=== PATIENT | female | born 1985 | race Caucasian/White ===

== ENCOUNTER 2018-09-28 05:31 | Outpatient (CLI) | payer BC ==
[~2018-09-28] VITALS: Ht 157.5 cm; Wt 99.8 kg
[2018-09-28] MEDS ORDERED: APIX5TAB PO (13:53)
[2018-09-28] MEDS ORDERED: DULO60CA58 PO (13:53)
[2018-09-28] MEDS ORDERED: BACL10TA PO (13:53)
[2018-09-28] MEDS ORDERED: PREG75CA PO (13:53)
[2018-09-28] MEDS ORDERED: METF-397 PO (14:25)
[2018-09-28] MEDS ORDERED: MULT-141 PO (14:25)
[2018-09-28] MEDS ORDERED: CHOL200025 PO (14:25)
[2018-09-28] MEDS ORDERED: MIRA50TA PO (14:25)
[2018-09-28] MEDS ORDERED: LISI10TA2 PO (14:25)
[2018-09-28] MEDS ORDERED: MELA1TAB20 PO (14:25)
[2018-09-28] MEDS ORDERED: MAGN500C15 PO (14:25)
[2018-09-28] MEDS ORDERED: PROP20TA5 PO (14:25)
[2018-09-28] MEDS ORDERED: DICY10CA12 PO (14:25)
[2018-09-28] MEDS ORDERED: GINK60TA7 PO (14:25)
[2018-09-28] MEDS ORDERED: LURA40TA3 PO (14:25)
[2018-09-28] MEDS ORDERED: OXYB10TA PO (14:25)
[2018-09-28] MEDS ORDERED: ATOR20TA66 PO (14:25)
[2018-09-28] MEDS ORDERED: FERR-84 PO (14:25)
[2018-09-28] MEDS ORDERED: OMG1KC PO (14:25)
== END 2018-09-28 14:26 | disposition home or self-care (01) ==
LOC: PREOP 05:31
PROVIDERS: ATTEND Urology
DX: Z01.818 Encounter for other preprocedural examination (principal)

== ENCOUNTER 2018-10-03 07:08 | Day surgery (SDC) | payer BC ==
[~2018-10-03] VITALS: Ht 157.5 cm; Wt 99.8 kg
[~2018-10-03 07:08] MED LIST: APIX5TAB PO; ATOR20TA66 PO; BACL10TA PO; CHOL200025 PO; DICY10CA12 PO; DULO60CA58 PO; FERR-84 PO; GINK60TA7 PO; LISI10TA2 PO; LURA40TA3 PO; MAGN500C15 PO; MELA1TAB20 PO; METF-397 PO; MIRA50TA PO; MULT-141 PO; OMG1KC PO; OXYB10TA PO; PREG75CA PO; PROP20TA5 PO
[2018-10-03 07:25] VITALS: BP 110/81
[2018-10-03] MEDS: LACTATED RINGERS 1,000 ML IV PRN ×2 (07:25→09:06)
[2018-10-03] MEDS ORDERED: cefTRIAXone 1,000 MG IV (ROCEPHIN) VIAL ONE (07:51)
[2018-10-03] MEDS ORDERED: cefTRIAXone FOR IV USE 1,000 MG in WATER (STERILE) FOR INJECTION 10 ML IV ONE (08:00)
[2018-10-03] MEDS ORDERED: fentaNYL INJECTION 100 MCG/2 ML AMP ONE (08:28)
[2018-10-03] MEDS ORDERED: MIDAZOLAM 2 MG/2 ML (VERSED) VIAL ONE (08:28)
--- NOTE | 2018-10-03 08:34 | Progress Note-Pre Operative ---
Pre-Operative Progress Note H&P Reviewed The H&P was reviewed, patient examined and no changes noted. Date Seen by Provider: Oct 03, 2018 Time Seen by Provider: 08:33 Date H&P Reviewed: Oct 03, 2018 Time H&P Reviewed: 08:33 Pre-Operative Diagnosis: INCONTINENCE, ISD, AND OAB CHAPIS SEVILLA MD Oct 03, 2018 08:34
[2018-10-03] MEDS ORDERED: ONDANSETRON 4 MG/2 ML (SDV) Z0FRAN ONE (08:36)
[2018-10-03] MEDS ORDERED: proPOfol 200 MG/20 ML (DIPRIVAN) VIAL IV ONE (08:36)
[2018-10-03] MEDS ORDERED: DEXAMETHASONE 10 MG/ML (DECADRON) 1 ML VIAL ONE (08:36)
[2018-10-03] MEDS ORDERED: LIDOCAINE PF 2% 5 ML (XYLOCAINE) VIAL ONE (08:36)
--- NOTE | 2018-10-03 08:36 | Progress Note-Post Operative ---
Post-Operative Progess Note Surgeon (s)/Batch Plant Operator (s) Surgeon CHAPIS SEVILLA MD Batch Plant Operator: NONE Pre-Operative Diagnosis INCONTINENCE, ISD, AND OAB Post-Operative Diagnosis SAME Procedure & Operative Findings Date of Procedure 10/03/18 Procedure Performed/Findings MACROPLASTIQUE IMPLANT Anesthesia Type GENERAL Estimated Blood Loss Estimated blood loss (mL): NONE Specimens/Packing Specimens Removed NONE Packing: NONE CHAPIS SEVILLA MD Oct 03, 2018 08:36
--- NOTE | 2018-10-03 08:38 | Discharge Inst-Urology ---
Discharge Inst-Urology Discharge Medications New, Converted, or Re-newed RX: RX on Chart Patient Instructions/Follow Up Plan Please make appointment to been seen in office in 4 weeks. Rest for 2 weeks In 48 hours, if no bleedings, may resume Eliquis Increase oral fluids for 48 hours and then as needed. Diet as tolerated. If questions or concerns contact your physician Or seek help at emergency department. CHAPIS SEVILLA MD Oct 03, 2018 08:38
[2018-10-03] MEDS ORDERED: ONDANSETRON 4 MG/2 ML (SDV) Z0FRAN IVP PRN (08:45)
[2018-10-03] MEDS ORDERED: fentaNYL INJECTION 100 MCG/2 ML AMP IVP ONE ×2 (08:45)
[2018-10-03] MEDS ORDERED: MEPERIDINE (DEMEROL) INJ 50 MG/ML IVP ONE (08:45)
[2018-10-03] MEDS ORDERED: SEVOFLURANE (ULTANE) 15 ML INHAL SOLN ONE ×3 (09:03→09:05)
[2018-10-03] MEDS ORDERED: PHEN-640 PO (09:14)
[2018-10-03] MEDS ORDERED: NITR-65 PO (09:14)
[2018-10-03 10:10] VITALS: BP 90/60
[2018-10-03] MEDS ORDERED: PHENAZOPYRIDINE 100 MG (PYRIDIUM) TABLET ONE (10:14)
[2018-10-03] MEDS ORDERED: PHENAZOPYRIDINE 100 MG (PYRIDIUM) TABLET PO ONE (10:30)
[2018-10-03 10:40] VITALS: BP 97/58
--- NOTE | 2018-10-03 10:41 | Anesthesia-General Post-Op ---
General Patient Condition Mental Status/LOC: Same as Preop Cardiovascular: Satisfactory Nausea/Vomiting: Absent Respiratory: Satisfactory Pain: Controlled Complications: Absent Post Op Complications Complications None Follow Up Care/Instructions Patient Instructions None needed. Anesthesia/Patient Condition Patient Condition Patient is doing well, no complaints, stable vital signs, no apparent adverse anesthesia problems. No complications reported per nursing. BRUCE RIOS CRNA Oct 03, 2018 10:41
[2018-10-03 11:10] VITALS: BP 98/74
[2018-10-03 11:20] VITALS: BP 98/74
--- NOTE | 2018-10-03 13:23 | OPERATIVE REPORT ---
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 POSTOPERATIVE DIAGNOSES: Mixed urinary incontinence with intrinsic sphincter deficiency and overactive bladder. OPERATION PERFORMED: Cystoscopy with Macroplastique implant. SURGEON: Andrew Sevilla MD ANESTHESIA: General. COMPLICATIONS: None. PROCEDURE: Under satisfactory general anesthesia, the patient in lithotomy position, genitalia were prepped and draped in the usual sterile fashion. Cystoscopy was performed and was essentially normal. Using the foroblique lens, I injected a full syringe of Macroplastique in the 6 o'clock position at the level of the mid urethra using the described technique and then half a syringe at each of the 10 and 2 o'clock position. There was excellent coaptation of the urethra at the mid urethral level. I left the bladder full, removed the cystoscope and performed a manual Valsalva maneuver that was negative. I reinserted the cystoscope and emptied the bladder. There was very minimal bleeding. The patient tolerated the procedure and anesthesia well and was sent to recovery room in stable condition. Job ID: [id number] DocumentID: [id number] Dictated Date: 10/03/2018 09:13:58 Studio Camera Operator Date: 10/03/2018 13:22:06 Dictated By: ANDREW SEVILLA MD
== END 2018-10-03 11:40 | disposition home or self-care (01) ==
LOC: SDC 07:08
PROVIDERS: ATTEND Urology
DX: N36.42 Intrinsic sphincter deficiency (ISD) (principal); N39.46 Mixed incontinence; N32.81 Overactive bladder; I10 Essential (primary) hypertension; E05.00 Thyrotoxicosis with diffuse goiter without thyrotoxic crisis or storm; K21.9 Gastro-esophageal reflux disease without esophagitis; G57.93 Unspecified mononeuropathy of bilateral lower limbs; M06.9 Rheumatoid arthritis, unspecified; Z86.711 Personal history of pulmonary embolism; Z79.899 Other long term (current) drug therapy
CPT/HCPCS: 84703; 87081

== ENCOUNTER → 2018-11-20 | Outpatient (CLI) | payer BC ==
[~2018-11-20] VITALS: Ht 157.5 cm; Wt 99.8 kg
[~2018-11-20] MED LIST changes: +METH5TAB5 PO; +NITR-65 PO; +PHEN-640 PO
== END | disposition home or self-care (01) ==
LOC: PREOP 05:37
PROVIDERS: ATTEND Urology
DX: Z01.818 Encounter for other preprocedural examination (principal)

== ENCOUNTER 2018-11-21 06:01 | Day surgery (SDC) | payer BC ==
[~2018-11-21] VITALS: Ht 157.5 cm; Wt 99.9 kg
[2018-11-21] VITALS (11 sets, daily range): BP systolic 88–115; BP diastolic 60–78
[2018-11-21] MEDS ORDERED: cefTRIAXone FOR IV USE 1,000 MG in WATER (STERILE) FOR INJECTION 10 ML IV ONE (06:15)
[2018-11-21] MEDS: LACTATED RINGERS 1,000 ML IV PRN ×2 (06:30→09:12)
[2018-11-21] MEDS ORDERED: CATHETER FLUSH 10 ML SYR IV PRN (07:00)
--- NOTE | 2018-11-21 07:08 | Progress Note-Pre Operative ---
Pre-Operative Progress Note H&P Reviewed The H&P was reviewed, patient examined and no changes noted. Date Seen by Provider: November 21, 2018 Time Seen by Provider: 07:07 Date H&P Reviewed: November 21, 2018 Time H&P Reviewed: 07:07 Pre-Operative Diagnosis: MIXED INCONTINENCE, OAB, AND ISD CHAPIS SEVILLA MD November 21, 2018 07:08
[2018-11-21] MEDS ORDERED: proPOfol 200 MG/20 ML (DIPRIVAN) VIAL IV ONE (07:10)
[2018-11-21] MEDS ORDERED: LIDOCAINE PF 2% 5 ML (XYLOCAINE) VIAL ONE (07:10)
[2018-11-21] MEDS ORDERED: fentaNYL INJECTION 100 MCG/2 ML AMP ONE (07:10)
[2018-11-21] MEDS ORDERED: MIDAZOLAM 2 MG/2 ML (VERSED) VIAL ONE (07:10)
[2018-11-21] MEDS ORDERED: ONDANSETRON 4 MG/2 ML (SDV) Z0FRAN ONE (07:10)
--- NOTE | 2018-11-21 07:10 | Progress Note-Post Operative ---
Post-Operative Progess Note Surgeon (s)/Leak Inspector (s) Surgeon CHAPIS SEVILLA MD Leak Inspector: NONE Pre-Operative Diagnosis MIXED INCONTINENCE, OAB, AND ISD Post-Operative Diagnosis SAME Procedure & Operative Findings Date of Procedure 11/21/18 Procedure Performed/Findings MACROPLASTIQUE IMPLANT Anesthesia Type GENERAL Estimated Blood Loss Estimated blood loss (mL): NONE Specimens/Packing Specimens Removed NONE Packing: NONE CHAPIS SEVILLA MD November 21, 2018 07:10
[2018-11-21] MEDS ORDERED: SEVOFLURANE (ULTANE) 15 ML INHAL SOLN ONE ×2 (07:11→07:39)
--- NOTE | 2018-11-21 07:12 | Discharge Inst-Urology ---
Discharge Inst-Urology Discharge Medications New, Converted, or Re-newed RX: RX on Chart Patient Instructions/Follow Up Plan Please make appointment to been seen in office in 4 weeks. In 48 hours, if no bleeding, may resume Plavix Increase oral fluids for 48 hours and then as needed. Diet and Activity as tolerated. If questions or concerns contact your physician Or seek help at emergency department. CHAPIS SEVILLA MD November 21, 2018 07:12
[2018-11-21] MEDS ORDERED: MEPERIDINE (DEMEROL) INJ 50 MG/ML IVP ONE (08:00)
[2018-11-21] MEDS ORDERED: ONDANSETRON 4 MG/2 ML (SDV) Z0FRAN IVP PRN (08:00)
[2018-11-21] MEDS ORDERED: PROMETHAZINE INJ 25 MG/ML (PHENERGAN) AMP IVP ONE (08:00)
[2018-11-21] MEDS ORDERED: fentaNYL INJECTION 100 MCG/2 ML AMP IVP ONE (08:00)
[2018-11-21] MEDS ORDERED: NITR-65 PO (08:22)
[2018-11-21] MEDS ORDERED: PHEN-640 PO (08:22)
[2018-11-21] MEDS ORDERED: PHENAZOPYRIDINE 100 MG (PYRIDIUM) TABLET ONE (09:00)
[2018-11-21] MEDS ORDERED: PHENAZOPYRIDINE 100 MG (PYRIDIUM) TABLET PO ONE (09:15)
--- NOTE | 2018-11-21 09:26 | Anesthesia-General Post-Op ---
General Patient Condition Mental Status/LOC: Same as Preop Cardiovascular: Satisfactory Nausea/Vomiting: Absent Respiratory: Satisfactory Pain: Controlled Complications: Absent Post Op Complications Complications None Follow Up Care/Instructions Patient Instructions None needed. Anesthesia/Patient Condition Patient Condition Patient is doing well, no complaints, stable vital signs, no apparent adverse anesthesia problems. No complications reported per nursing. D/C home per [facility] Criteria: No BECCA ROMERO CRNA November 21, 2018 09:26
--- NOTE | 2018-11-21 09:33 | OPERATIVE REPORT ---
DATE OF SERVICE: 11/21/2018 PREOPERATIVE DIAGNOSES: Mixed urinary incontinence with overactive bladder and intrinsic sphincter deficiency. POSTOPERATIVE DIAGNOSES: Mixed urinary incontinence with overactive bladder and intrinsic sphincter deficiency. OPERATION PERFORMED: Macroplastique implant. SURGEON: Andrew Sevilla MD ANESTHESIA: General. COMPLICATIONS: None. DESCRIPTION OF PROCEDURE: Under satisfactory general anesthesia, the patient in lithotomy position, genitalia were prepped and draped in the usual sterile fashion. Cystoscope was introduced in the bladder, which was emptied. A full syringe of Macroplastique was injected at the 6 o'clock position in the mid urethra using the described technique. There was excellent elevation of the tissue. Similarly, half syringe was injected on each 10 & 2 o'clock position. There was excellent coaptation of the urethra. No bleeding. I removed the cystoscope, performed a manual Valsalva maneuver that was negative. Reinserted the scope to empty the bladder. ESTIMATED BLOOD LOSS: None. The patient tolerated the procedure and anesthesia well and was sent to recovery room in stable condition. Job ID: [id number] DocumentID: [id number] Dictated Date: 11/21/2018 07:47:47 Legal Word Processor Date: 11/21/2018 09:32:50 Dictated By: ANDREW SEVILLA MD [facility]
== END 2018-11-21 10:05 | disposition home or self-care (01) ==
LOC: SDC 06:01
PROVIDERS: ATTEND Urology
DX: N36.42 Intrinsic sphincter deficiency (ISD) (principal); N39.46 Mixed incontinence; N32.81 Overactive bladder; I10 Essential (primary) hypertension; K21.9 Gastro-esophageal reflux disease without esophagitis; E05.00 Thyrotoxicosis with diffuse goiter without thyrotoxic crisis or storm; E28.2 Polycystic ovarian syndrome; E66.01 Morbid (severe) obesity due to excess calories; Z68.41 Body mass index [BMI] 40.0-44.9, adult; Z86.711 Personal history of pulmonary embolism; Z79.01 Long term (current) use of anticoagulants; Z79.84 Long term (current) use of oral hypoglycemic drugs; Z79.899 Other long term (current) drug therapy
CPT/HCPCS: 84703; 87081

== ENCOUNTER 2019-06-08 16:31 | Emergency (ER) | payer BC ==
[~2019-06-08] VITALS: Ht 157 cm; Wt 110.8 kg
[~2019-06-08 16:31] MED LIST changes: -DULO60CA58 PO; +DULO60CA59 PO; -OXYB10TA PO; +OXYB10TA2 PO
[2019-06-08] MEDS ORDERED: APIX5TAB PO (16:55)
[2019-06-08] MEDS ORDERED: SELE200T11 PO (16:55)
[2019-06-08] MEDS ORDERED: LEVO50TA6 PO (16:55)
--- NOTE | 2019-06-08 17:37 | ED Abdominal Pain ---
General Chief Complaint: Abdominal/GI Problems Stated Complaint: ABD PAIN Nursing Triage Note: PATIENT HAS BEEN HAVING LUQ ABD PAIN UNDER HER RIBS X1 MONTH. AT FIRST SHE THOGUHT IT WAS MUSCULAR, HURTS WITH MOVEMENT, COUGHING, LAUGHING. IT HAS PROGRESSED IT NOW HURTS EVEN WHEN SHE IS NOT MOVING. Sepsis Screen: No Definite Risk Source of Information: Patient Exam Limitations: No Limitations History of Present Illness Date Seen by Provider: Jun 08, 2019 Time Seen by Provider: 17:33 Initial Comments This 34-year-old white female presents with complaint of left upper quadrant pain for the past month that has been made worse with movement or coughing. Patient denies associated fever, chills, dysuria, frequency, nausea, vomiting, or diarrhea. Past medical history includes previous pancreatitis. She is status post cholecystectomy and appendectomy. The patient's had a previous pulmonary embolus and is on AHLQUIST 5 mg twice a day. Patient's pain is moderate in severity and sharp in nature. It is located in the left upper quadrant. It does not radiate. Allergies and Home Medications Allergies Coded Allergies: lamotrigine (Verified Allergy, Mild, RASH, 11/20/18) niacin (Verified Allergy, Mild, RASH, 11/20/18) sulfamethoxazole (Verified Allergy, Mild, HIVES, 11/20/18) trimethoprim (Verified Allergy, Mild, HIVES, 11/20/18) morphine (Verified Adverse Reaction, Unknown, DOESNT' WORK FOR PAIN CONTROL, 09/28/18) Home Medications Apixaban 5 Mg Tablet, 5 MG PO BID, (Reported) Atorvastatin Calcium 20 Mg Tablet, 20 MG PO HS, (Reported) Baclofen 10 Mg Tablet, 10 MG PO QID PRN for MUSCLE SPASMS, (Reported) Cholecalciferol (Vitamin D3) 2,000 Unit Tablet, 2,000 UNIT PO DAILY, (Reported) Dicyclomine HCl 10 Mg Capsule, 10 MG PO TID, (Reported) Duloxetine HCl 60 Mg Capsule.dr, 60 MG PO DAILY, (Reported) Ferrous Sulfate 325 Mg Tablet, 325 MG PO DAILY, (Reported) Ginkgo Biloba 60 Mg Tablet, 60 MG PO DAILY, (Reported) Lisinopril 10 Mg Tablet, 10 MG PO DAILY, (Reported) Lurasidone HCl 40 Mg Tablet, 40 MG PO DAILY, (Reported) Magnesium Oxide 500 Mg Capsule, 500 MG PO DAILY, (Reported) Melatonin/Pyridoxine HCl (B6) 1 Each Tab.mphase, 10 MG PO HS, (Reported) Metformin HCl 500 Mg Tablet, 500 MG PO TID, (Reported) Mirabegron 50 Mg Tab.er.24h, 50 MG PO DAILY, (Reported) Multivit with Calcium,Iron,Min 1 Each Tablet, 1 EACH PO DAILY, (Reported) Crooks 3 Polyunsat Fatty Acids 1,000 Mg Cap, 1,000 MG PO DAILY, (Reported) Oxybutynin Chloride 10 Mg Tab.er.24, 10 MG PO DAILY, (Reported) Pregabalin 75 Mg Capsule, 75 MG PO BID, (Reported) Propranolol HCl 20 Mg Tablet, 20 MG PO BID, (Reported) Patient Home Medication List Home Medication List Reviewed: Yes Review of Systems Review of Systems Constitutional: No chills, No fever EENTM: No Blurred Vision, No Mouth Pain Respiratory: Denies Cough; Shortness of Air Cardiovascular: Denies Chest Pain Gastrointestinal: See HPI, Abdominal Pain; Denies Diarrhea, Denies Nausea Genitourinary: Denies Burning, Denies Frequency Musculoskeletal: No back pain Skin: No rash Psychiatric/Neurological: No Symptoms Reported Endocrine: No Symptoms Reported Hematologic/Lymphatic: No Symptoms Reported Past Ffqevrv-Uekxuf-Eamgrf Hx Past Med/Social Hx: Reviewed Nursing Past Med/Soc Hx Patient Social History Alcohol Use: Rarely Uses Recreational Drug Use: No Smoking Status: Never a Smoker 2nd Hand Smoke Exposure: Yes Recent Foreign Travel: No Contact w/Someone Who Travel: No Recent Infectious Disease Expo: No Recent Hopitalizations: No Immunizations Up To Date Date of Influenza Vaccine: Apr 03, 2018 Seasonal Allergies Seasonal Allergies: Yes (COUGHING WITH ALLERGIES) Past Medical History Surgeries: Yes (WISDOM TEETH) Adenoidectomy, Appendectomy, Gallbladder, Tonsillectomy Respiratory: Yes (COUGH WITH ALLERGIES) Pulmonary Embolism Cardiac: Yes High Cholesterol, Hypertension Neurological: Yes Neuropathy Female Reproductive Disorders: Menstrual Problems, Polycystic Ovarian Dis Sexually Transmitted Disease: No HIV/AIDS: No Genitourinary: Yes (OAB, ISD) Gastrointestinal: Yes Gastroesophageal Reflux, Irritable Bowel Musculoskeletal: Yes Arthritis, Fibromyalgia, Rheumatoid Arthritis 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 4.0oz. 99.345658km; 44.00 BMI Method: General Appearance: WD/WN, no apparent distress HEENT: normal ENT inspection Neck: normal inspection Respiratory: lungs clear Cardiovascular: regular rate, rhythm Gastrointestinal: normal bowel sounds, non tender, soft Extremities: normal range of motion, non-tender, normal inspection Back: normal inspection Neurologic/Psychiatric: no motor/sensory deficits, alert Skin: normal color, warm/dry; No rash Progress/Results/Core Measures Results/Orders Lab Results Laboratory Tests Test 06/08/19 17:27 06/08/19 17:50 Range/Units Urine Color YELLOW Urine Clarity CLEAR Urine pH 6.0 5-9 Urine Specific [place] <=1.005 1.016-1.022 Urine Protein NEGATIVE NEGATIVE Urine Glucose (UA) NEGATIVE NEGATIVE Urine Ketones NEGATIVE NEGATIVE Urine Nitrite NEGATIVE NEGATIVE Urine Bilirubin NEGATIVE NEGATIVE Urine Urobilinogen 0.2 < = 1.0 MG/DL Urine Leukocyte Esterase NEGATIVE NEGATIVE Urine RBC (Auto) 3+ H NEGATIVE Urine RBC 0-2 /HPF Urine WBC 0-2 /HPF Urine Squamous Epithelial Cells 2-5 /HPF Urine Crystals NONE /LPF Urine Bacteria NEGATIVE /HPF Urine Casts NONE /LPF Urine Mucus NEGATIVE /LPF Urine Culture Indicated NO White Blood Count 11.4 H 4.3-11.0 10^3/uL Red Blood Count 4.80 4.35-5.85 10^6/uL Hemoglobin 13.3 11.5-16.0 G/DL Hematocrit 40 35-52 % Mean Corpuscular Volume 83 80-99 FL Mean Corpuscular Hemoglobin 28 25-34 PG Mean Corpuscular Hemoglobin Concent 33 32-36 G/DL Red Cell Distribution Width 14.5 10.0-14.5 % Platelet Count 372 130-400 10^3/uL Mean Platelet Volume 9.0 7.4-10.4 FL Neutrophils (%) (Auto) 59 42-75 % Lymphocytes (%) (Auto) 28 12-44 % Monocytes (%) (Auto) 10 0-12 % Eosinophils (%) (Auto) 3 0-10 % Basophils (%) (Auto) 1 0-10 % Neutrophils # (Auto) 6.7 1.8-7.8 X 10^3 Lymphocytes # (Auto) 3.2 1.0-4.0 X 10^3 Monocytes # (Auto) 1.1 H 0.0-1.0 X 10^3 Eosinophils # (Auto) 0.3 0.0-0.3 10^3/uL Basophils # (Auto) 0.1 0.0-0.1 10^3/uL Sodium Level 136 135-145 MMOL/L Potassium Level 4.2 3.6-5.0 MMOL/L Chloride Level 99 98-107 MMOL/L Carbon Dioxide Level 25 21-32 MMOL/L Anion Gap 12 5-14 MMOL/L Blood Urea Nitrogen 11 7-18 MG/DL Creatinine 1.08 0.60-1.30 MG/DL Estimat Glomerular Filtration Rate 58 BUN/Creatinine Ratio 10 Glucose Level 87 70-105 MG/DL Calcium Level 9.8 8.5-10.1 MG/DL Corrected Calcium 8.5-10.1 MG/DL Total Bilirubin 0.2 0.1-1.0 MG/DL Aspartate Amino Transf (AST/SGOT) 20 5-34 U/L Alanine Aminotransferase (ALT/SGPT) 33 0-55 U/L Alkaline Phosphatase 79 40-136 U/L Total Protein 7.3 6.4-8.2 GM/DL Albumin 4.6 H 3.2-4.5 GM/DL Lipase 289 H 8-78 U/L Serum Test, Qualitative NEGATIVE NEGATIVE My Orders Orders - ALFREDA BLANK MD Cbc With Automated Diff (06/08/19 17:31) Comprehensive Metabolic Panel (06/08/19 17:31) Lipase (06/08/19 17:31) Ua Culture If Indicated (06/08/19 17:31) Ct Abdomen/Pelvis W (06/08/19 17:31) Hcg,Qualitative Serum (06/08/19 17:31) Iohexol Injection (Omnipaque 350 Mg/Ml 1 (06/08/19 18:30) Received Contrast (Hold Metformin- Contr (06/08/19 18:30) Sodium Chloride Flush (Catheter Flush Sy (06/08/19 18:30) Ns (Ivpb) (Sodium Chloride 0.9% Ivpb Bag (06/08/19 18:30) Medications Given in ED Current Medications Medications Dose Ordered Sig/Mahi Route Start Time Stop Time Status Last Admin Dose Admin Iohexol 100 ml ONCE ONCE IV 06/08/19 18:30 06/08/19 18:31 DC 06/08/19 18:36 100 ML Sodium Chloride 10 ml NEEDED PRN IV 06/08/19 18:30 06/08/19 18:37 10 ML Sodium Chloride 100 ml ONCE ONCE IV 06/08/19 18:30 06/08/19 18:31 DC 06/08/19 18:37 80 ML Vital Signs/I&O 06/08/19 16:44 Temp 36.7 Pulse 66 Resp 18 B/P (MAP) 94/65 (75) Pulse Ox 97 Blood Pressure Mean: 75 POS Progress Progress Note : Time: 17:36 Progress Note Radiographic and laboratory evaluation and initiated. 650 p.m. The patient's lipase was moderately elevated. I discussed findings with patient and the acid she follow-up with her doctor on Tuesday. Her last episode of pancreatitis resolved with Zofran and Vicodin which I prescribed. Departure Impression Primary Impression: Pancreatitis Qualified Codes: K85.20 - Alcohol induced acute pancreatitis without necrosis or infection Disposition: HOME, SELF-CARE Condition: Unchanged Departure-Patient Inst. Decision time for Depature: 18:52 Referrals: ELOY MOREIRA DO (PCP) Primary Care Physician Patient Instructions: Pancreatitis (DC) Add. Discharge Instructions: Vicodin Zofran as prescribed. Follow with Dr. Moreira on Tuesday. Return if any problems or questions. All discharge instructions reviewed with patient and/or family. Voiced understanding. Scripts Hydrocodone/Acetaminophen (Vicodin 5-300 mg Tablet) 1 Each Tablet 1-2 EACH PO Q6H PRN for PAIN-MODERATE MDD 10 for 7 Days, #20 TAB Prov: ALFREDA BLANK MD 06/08/19 Ondansetron (Ondansetron Odt) 4 Mg Tab.rapdis 4 MG PO Q4H PRN for NAUSEA/VOMITING, #20 TAB Prov: ALFREDA BLANK MD 06/08/19 ALFREDA BLANK MD Jun 08, 2019 17:37 POS
[2019-06-08 17:38] LABS: BILIRUBIN,URINE NEGATIVE (NEGATIVE); CLARITY,URINE CLEAR; COLOR,URINE YELLOW; GLUCOSE, URINE (UA) NEGATIVE (NEGATIVE); KETONES,URINE NEGATIVE (NEGATIVE); LEUKOCYTE ESTERASE ,URINE NEGATIVE (NEGATIVE); NITRITE,URINE NEGATIVE (NEGATIVE); PROTEIN,URINE NEGATIVE (NEGATIVE)
[2019-06-08 18:05] LABS: BASOPHILS # (AUTO) 0.1 10^3/uL (0.0-0.1); BASOPHILS % (AUTO) 1 % (0-10); EOSINOPHILS # (AUTO) 0.3 10^3/uL (0.0-0.3); EOSINOPHILS % (AUTO) 3 % (0-10); HEMATOCRIT 40 % (35-52); HEMOGLOBIN 13.3 G/DL (11.5-16.0); LYMPHOCYTES # (AUTO) 3.2 X 10^3 (1.0-4.0); LYMPHOCYTES % (AUTO) 28 % (12-44); MEAN CORPUSCULAR HEMOGLOBIN 28 PG (25-34); MEAN CORPUSCULAR HGB CONC 33 G/DL (32-36); MEAN CORPUSCULAR VOLUME 83 FL (80-99); MONOCYTES # (AUTO) 1.1 X 10^3 (0.0-1.0); MONOCYTES % (AUTO) 10 % (0-12); NEUTROPHILS # (AUTO) 6.7 X 10^3 (1.8-7.8); NEUTROPHILS % (AUTO) 59 % (42-75); PLATELET COUNT 372 10^3/uL (130-400); RED CELL DISTRIBUTION WIDTH 14.5 % (10.0-14.5); WHITE BLOOD COUNT 11.4 10^3/uL (4.3-11.0)
[2019-06-08 18:09] LABS: BACTERIA,URINE NEGATIVE /HPF; RBC,URINE 0-2 /HPF; WBC,URINE 0-2 /HPF
[2019-06-08] MEDS ORDERED: IOHEXOL 350 MG/ML 100 ML (OMNIPAQUE 350) VIAL IV ONE (18:30)
[2019-06-08] MEDS ORDERED: HOLD METFORMIN - RECEIVED CONTRAST 20 ML VIAL IV SCH (18:30)
[2019-06-08] MEDS ORDERED: CATHETER FLUSH 10 ML SYR IV PRN (18:30)
[2019-06-08] MEDS ORDERED: NS 100 ML (IVPB) BAG IV ONE (18:30)
[2019-06-08 18:33] LABS: ALANINE AMINOTRANSFERASE 33 U/L (0-55); ALBUMIN 4.6 GM/DL (3.2-4.5); ALKALINE PHOSPHATASE 79 U/L (40-136); BILIRUBIN,TOTAL 0.2 MG/DL (0.1-1.0); BUN/CREATININE RATIO 10; CALCIUM 9.8 MG/DL (8.5-10.1); CARBON DIOXIDE 25 MMOL/L (21-32); CHLORIDE 99 MMOL/L (98-107); CREATININE SERUM 1.08 MG/DL (0.60-1.30); GFR ESTIMATED 58; GLUCOSE 87 MG/DL (70-105); LIPASE 289 U/L (8-78); POTASSIUM 4.2 MMOL/L (3.6-5.0); SODIUM 136 MMOL/L (135-145); TOTAL PROTEIN 7.3 GM/DL (6.4-8.2)
[2019-06-08] MEDS ORDERED: ONDA4TAB11 PO (18:55)
[2019-06-08] MEDS ORDERED: HYDR-3455 PO (18:55)
[2019-06-08] MEDS ORDERED: HYDROcodone/APAP 5 MG/325 MG (LORTAB) TAB PO ONE (19:00)
[2019-06-08] MEDS ORDERED: ONDANSETRON 4 MG (ZOFRAN) ORAL DISSOLVE TAB PO ONE (19:00)
--- NOTE | 2019-06-08 19:02 | Diagnostic Imaging Report ---
CT ABDOMEN/PELVIS W TECHNIQUE: Multiple contiguous axial images were obtained through the abdomen and pelvis after administration of intravenous contrast. All CT scans use one or more of the following dose optimizing techniques: automated exposure control, MA and/or KvP adjustment based on a patient size and exam type, or iterative reconstruction. INDICATION: Left upper quadrant pain COMPARISON: None available. FINDINGS: Lower chest: Patchy subsegmental atelectasis within the right lung base. Peritoneum: No free intraperitoneal air or fluid. Liver and biliary system: Diffuse hypoattenuation of the liver suggests hepatic steatosis. No focal hepatic lesion. Cholecystectomy. A small amount of pneumobilia is present and likely due to prior sphincterotomy. Spleen and Pancreas: Spleen is normal measuring 9 cm. The pancreas enhances normally without mass lesion or peripancreatic inflammatory changes. Adrenals: Normal. tract: The kidneys enhance normally without suspicious mass or obstruction. Urinary bladder is distended without wall thickening. No ureteral calculi. The uterus and ovaries are normal in appearance. GI tract: Stomach is partially filled with fluid and there is no wall thickening. No bowel obstruction. No pericolonic inflammatory changes. Appendectomy. Vasculature and Lymph nodes: Normal caliber aorta. No abdominal or pelvic lymphadenopathy. Musculoskeletal: No concerning osseous lesion. IMPRESSION: 1. No acute intra-abdominal process. 2. The spleen is normal. 3. No fracture of the lower left ribs. Dictated by: Dictated on workstation # [id number]
[2019-06-08 19:13] VITALS: BP 101/64
--- OUTSIDE RECORDS SUMMARY | 2019-07-05 02:09 | XMS REPORT | Continuity of Care Document ---
Author Organization Unknown Address Unknown Phone Unavailable Allergies Active Description Code Type Severity Reaction Onset Reported/Identified Relationship to Patient Clinical Status Yes lamotrigine [id number] Drug Aller gy Unknown RASH 09/28/2018 Yes morphine [id number] Drug Allergy Unknown DOESNT' WORK FO 09/28/2018 Yes niacin [id number] Drug Allergy Unknown RASH 09/28/2018 Yes sulfamethoxazole [id number] Drug Allergy Unknown HIVES 09/28/2018 Yes trimethoprim [id number] Drug Allergy Unknown HIVES 09/28/2018 Yes lamotrigine [id number] Drug Aller gy Mild RASH 11/20/2018 Yes niacin [id number] Drug Allergy Mild RASH 11/20/2018 Yes sulfamethoxazole [id number] Drug Allergy Mild HIVES 11/20/2018 Yes trimethoprim [id number] Drug Allergy Mild HIVES 11/20/2018 Medications There is no data. 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 10/03/2018 CHAPIS SEVILLA MD, Ot G57.9 3 UNSPECIFIED MONONEUROPATHY OF BILATERAL 10/03/2018 CHAPIS SEVILLA MD Ot I10 ESSENTIAL (PRIMARY) HYPERTENSION 10/03/2018 CHAPIS SEVILLA MD, Ot K21.9 GASTRO-ESOPHAGEAL REFLUX DISEASE WITHOUT 10/03/2018 CHAPIS SEVILLA MD Ot M06.9 RHEUMATOID ARTHRITIS, UNSPECIFIED 10/03/2018 DI MD, CHAPIS A Ot N32.8 1 OVERACTIVE BLADDER 10/03/2018 CHAPIS SEVILLA MD, Ot N36.4 2 INTRINSIC SPHINCTER DEFICIENCY (ISD) 10/03/2018 CHAPIS SEVILLA MD, Ot N39.4 6 MIXED INCONTINENCE 10/03/2018 CHAPIS SEVILLA MD, Ot Z79.8 99 OTHER DETENTION (CURRENT) DRUG THERAPY 10/03/2018 CHAPIS SEVILLA MD, Ot Z86.7 11 PERSONAL HISTORY OF PULMONARY EMBOLISM 11/21/2018 CHAPIS SEVILLA MD, Ot Z01.8 18 ENCOUNTER FOR OTHER PREPROCEDURAL EXAMIN 11/21/2018 CHAPIS SEVILLA MD, Ot 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 11/21/2018 CHAPIS SEVILLA MD, Ot E28.2 POLYCYSTIC OVARIAN SYNDROME 11/21/2018 CHAPIS SEVILLA MD, Ot E66.0 1 MORBID (SEVERE) OBESITY DUE TO EXCESS CA 11/21/2018 CHAPIS SEVILLA MD Ot I10 ESSENTIAL (PRIMARY) HYPERTENSION 11/21/2018 CHAPIS SEVILLA MD, Ot K21.9 GASTRO-ESOPHAGEAL REFLUX DISEASE WITHOUT 11/21/2018 CHAPIS SEVILLA MD, Ot N32.8 1 OVERACTIVE BLADDER 11/21/2018 CHAPIS SEVILLA MD, Ot N36.4 2 INTRINSIC SPHINCTER DEFICIENCY (ISD) 11/21/2018 CHAPIS SEVILLA MD, Ot N39.4 6 MIXED INCONTINENCE 11/21/2018 CHAPIS SEVILLA MD, Ot Z68.4 1 BODY MASS INDEX (BMI) 40.0-44.9, ADULT 11/21/2018 CHAPIS SEVILLA MD, Ot Z79.0 1 ADJUNCT FACULTY FOR MEDICAL TERMINOLOGY (CURRENT) USE OF ANTICOAGULANT 11/21/2018 CHAPIS SEVILLA MD, Ot Z79.8 4 DETENTION (CURRENT) USE OF ORAL HYPOGLYC 11/21/2018 CHAPIS SEVILLA MD, Ot Z79.8 99 OTHER ADJUNCT FACULTY FOR MEDICAL TERMINOLOGY (CURRENT) DRUG THERAPY 11/21/2018 CHAPIS SEVILLA MD, Ot Z86.7 11 PERSONAL HISTORY OF PULMONARY EMBOLISM 11/23/2018 CHAPIS SEVILLA MD, Ot 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 11/23/2018 CHAPIS SEVILLA MD Ot E28.2 POLYCYSTIC OVARIAN SYNDROME 11/23/2018 CHAPIS SEVILLA MD Ot E66.0 1 MORBID (SEVERE) OBESITY DUE TO EXCESS CA 11/23/2018 CHAPIS SEVILLA MD Ot I10 ESSENTIAL (PRIMARY) HYPERTENSION 11/23/2018 CHAPIS SEVILLA MD, Ot K21.9 GASTRO-ESOPHAGEAL REFLUX DISEASE WITHOUT 11/23/2018 CHAPIS SEVILLA MD Ot N32.8 1 OVERACTIVE BLADDER 11/23/2018 CHAPIS SEVILLA MD, Ot N36.4 2 INTRINSIC SPHINCTER DEFICIENCY (ISD) 11/23/2018 CHAPIS SEVILLA MD Ot N39.4 6 MIXED INCONTINENCE 11/23/2018 CHAPIS SEVILLA MD, Ot Z68.4 1 BODY MASS INDEX (BMI) 40.0-44.9, ADULT 11/23/2018 CHAPIS SEVILLA MD Ot Z79.0 1 DETENTION (CURRENT) USE OF ANTICOAGULANT 11/23/2018 CHAPIS SEVILLA MD Ot Z79.8 4 ADJUNCT FACULTY FOR MEDICAL TERMINOLOGY (CURRENT) USE OF ORAL HYPOGLYC 11/23/2018 CHAPIS SEVILLA MD, Ot Z79.8 99 OTHER ADJUNCT FACULTY FOR MEDICAL TERMINOLOGY (CURRENT) DRUG THERAPY 11/23/2018 CHAPIS SEVILLA MD Ot Z86.7 11 PERSONAL HISTORY OF PULMONARY EMBOLISM 06/08/2019 ROSAMARIA POSEY, ALFREDA Starks Ot E05. 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 00 PURE HYPERCHOLESTEROLEMIA, UNSPECIFIED 06/08/2019 ROSAMARIA POSEY, ALFREDA Starks Ot F31. 9 BIPOLAR DISORDER, UNSPECIFIED 06/08/2019 ROSAMARIA POSEY, ALFREDA Starks Ot F41. 9 ANXIETY DISORDER, UNSPECIFIED 06/08/2019 ALFREDA BLANK MD Ot G62. 9 POLYNEUROPATHY, UNSPECIFIED 06/08/2019 ROSAMARIA POSEY, ALFREDA Starks Ot I10 ESSENTIAL (PRIMARY) HYPERTENSION 06/08/2019 ROSAMARIA POSEY, ALFREDA Starks Ot K21. 9 GASTRO-ESOPHAGEAL REFLUX DISEASE WITHOUT 06/08/2019 ROSAMARIA POSEY, ALFREDA Starks Ot K58. 9 IRRITABLE BOWEL SYNDROME WITHOUT DIARRHE 06/08/2019 ROSAMARIA POSEY, ALFREDA Starks Ot K85. 90 ACUTE PANCREATITIS WITHOUT NECROSIS OR I 06/08/2019 ROSAMARIA POSEY, ALFREDA Starks Ot M06. 9 RHEUMATOID ARTHRITIS, UNSPECIFIED 06/08/2019 ROSAMARIA POSEY, ALFREDA Starks Ot M79. 7 FIBROMYALGIA 06/08/2019 ROSAMARIA POSEY, ALFREDA Starks Ot R10. 12 LEFT UPPER QUADRANT PAIN 06/08/2019 ROSAMARIA POSEY, ALFREDA Starks Ot Z77. 22 CNTCT W AND EXPSR TO ENVIRON TOBACCO SMO 06/08/2019 ROSAMARIA POSEY, ALFREDA Starks Ot Z79. 84 DETENTION (CURRENT) USE OF ORAL HYPOGLYC 06/08/2019 ROSAMARIA POSEY, ALFREDA Starks Ot Z86.711 PERSONAL HISTORY OF PULMONARY EMBOLISM 06/08/2019 ROSAMARIA POSEY, ALFREDA Starks Ot Z88. 1 ALLERGY STATUS TO OTHER ANTIBIOTIC AGENT 06/08/2019 ROSAMARIA POSEY, ALFREDA Starks Ot Z88. 2 ALLERGY STATUS TO SULFONAMIDES STATUS 06/08/2019 ROSAMARIA POSEY, ALFREDA Starks Ot Z88. 5 ALLERGY STATUS TO NARCOTIC AGENT STATUS 06/08/2019 ROSAMARIA POSEY, ALFREDA Starks Ot Z88. 8 ALLERGY STATUS TO OTH DRUG/MEDS/BIOL SUB 06/08/2019 ROSAMARIA POSEY, ALFREDA Tereza Ot Z90. 49 ACQUIRED ABSENCE OF OTHER SPECIFIED PART 06/11/2019 ROSAMARIA POSEY, ALFREDA Starks Ot E05. 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 00 PURE HYPERCHOLESTEROLEMIA, UNSPECIFIED 06/11/2019 ROSAMARIA POSEY, ALFREDA Starks Ot F31. 9 BIPOLAR DISORDER, UNSPECIFIED 06/11/2019 ROSAMARIA POSEY, ALFREDA Starks Ot F41. 9 ANXIETY DISORDER, UNSPECIFIED 06/11/2019 ROSAMARIA POSEY, ALFREDA Starks Ot G62. 9 POLYNEUROPATHY, UNSPECIFIED 06/11/2019 ROSAMARIA POSEY, ALFREDA Starks Ot I10 ESSENTIAL (PRIMARY) HYPERTENSION 06/11/2019 ROSAMARIA POSEY, ALFREDA Starks Ot K21. 9 GASTRO-ESOPHAGEAL REFLUX DISEASE WITHOUT 06/11/2019 ROSAMARIA POSEY, ALFREDA Starks Ot K58. 9 IRRITABLE BOWEL SYNDROME WITHOUT DIARRHE 06/11/2019 ROSAMARIA POSEY, ALFREDA Starks Ot K85. 90 ACUTE PANCREATITIS WITHOUT NECROSIS OR I 06/11/2019 ROSAMARIA POSEY, ALFREDA Starks Ot M06. 9 RHEUMATOID ARTHRITIS, UNSPECIFIED 06/11/2019 ROSAMARIA POSEY, ALFREDA Starks Ot M79. 7 FIBROMYALGIA 06/11/2019 ROSAMARIA POSEY, ALFREDA Starks Ot R10. 12 LEFT UPPER QUADRANT PAIN 06/11/2019 ROSAMARIA POSEY, ALFREDA Starks Ot Z77. 22 CNTCT W AND EXPSR TO ENVIRON TOBACCO SMO 06/11/2019 ROSAMARIA POSEY, ALFREDA Starks Ot Z79. 84 DETENTION (CURRENT) USE OF ORAL HYPOGLYC 06/11/2019 ROSAMARIA POSEY, ALFREDA Starks Ot Z86.711 PERSONAL HISTORY OF PULMONARY EMBOLISM 06/11/2019 ROSAMARIA POSEY, ALFREDA Starks Ot Z88. 1 ALLERGY STATUS TO OTHER ANTIBIOTIC AGENT 06/11/2019 ROSAMARIA POSEY, ALFREDA Starks Ot Z88. 2 ALLERGY STATUS TO SULFONAMIDES STATUS 06/11/2019 ROSAMARIA POSEY, ALFREDA Starks Ot Z88. 5 ALLERGY STATUS TO NARCOTIC AGENT STATUS 06/11/2019 ROSAMARIA POSEY, ALFREDA Starks Ot Z88. 8 ALLERGY STATUS TO OTH DRUG/MEDS/BIOL SUB 06/11/2019 ROSAMARIA POSEY, ALFREDA Starks Ot Z90. 49 ACQUIRED ABSENCE OF OTHER SPECIFIED PART 06/11/2019 ROSAMARIA POSEY, ALFREDA Starks Ot E05. 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 00 PURE HYPERCHOLESTEROLEMIA, UNSPECIFIED 06/11/2019 ROSAMARIA POSEY, ALFREDA Starks Ot F31. 9 BIPOLAR DISORDER, UNSPECIFIED 06/11/2019 ROSAMARIA POSEY, ALFREDA Starks Ot F41. 9 ANXIETY DISORDER, UNSPECIFIED 06/11/2019 ROSAMARIA POSEY, ALFREDA Starks Ot G62. 9 POLYNEUROPATHY, UNSPECIFIED 06/11/2019 ROSAMARIA POSEY, ALFREDA Starks Ot I10 ESSENTIAL (PRIMARY) HYPERTENSION 06/11/2019 ROSAMARIA POSEY, ALFREDA Starks Ot K21. 9 GASTRO-ESOPHAGEAL REFLUX DISEASE WITHOUT 06/11/2019 ROSAMARIA POSEY, ALFREDA Starks Ot K58. 9 IRRITABLE BOWEL SYNDROME WITHOUT DIARRHE 06/11/2019 ROSAMARIA POSEY, ALFREDA Starks Ot K85. 90 ACUTE PANCREATITIS WITHOUT NECROSIS OR I 06/11/2019 ROSAMARIA POSEY, ALFREDA Starks Ot M06. 9 RHEUMATOID ARTHRITIS, UNSPECIFIED 06/11/2019 ROSAMARIA POSEY, ALFREDA Starks Ot M79. 7 FIBROMYALGIA 06/11/2019 ROSAMARIA POSEY, ALFREDA Starks Ot R10. 12 LEFT UPPER QUADRANT PAIN 06/11/2019 ROSAMARIA POSEY ALFREDA Starks Ot Z77. 22 CNTCT W AND EXPSR TO ENVIRON TOBACCO SMO 06/11/2019 ROSAMARIA POSEY ALFREDA Starks Ot Z79. 84 DETENTION (CURRENT) USE OF ORAL HYPOGLYC 06/11/2019 ROSAMARIA POSEY ALFREDA Starks Ot Z86.711 PERSONAL HISTORY OF PULMONARY EMBOLISM 06/11/2019 ROSAMARIA POSEY ALFREDA Starks Ot Z88. 1 ALLERGY STATUS TO OTHER ANTIBIOTIC AGENT 06/11/2019 ROSAMARIA POSEY ALFREDA Starks Ot Z88. 2 ALLERGY STATUS TO SULFONAMIDES STATUS 06/11/2019 ROSAMARIA POSEY ALFREDA Starks Ot Z88. 5 ALLERGY STATUS TO NARCOTIC AGENT STATUS 06/11/2019 ROSAMARIA POSEY ALFREDA Starks Ot Z88. 8 ALLERGY STATUS TO OTH DRUG/MEDS/BIOL SUB 06/11/2019 ROSAMARIA POSEY ALFREDA Starks Ot Z90. 49 ACQUIRED ABSENCE OF OTHER SPECIFIED PART Procedures There is no data. Results Test Result Range Urine beta human chorionic gonadotropin (hCG) measurement - 10/03/18 07:20 Urine beta human chorionic gonadotropin (hCG) measurem ent NEGATIVE NEGATIVE Methicillin resistant Staphylococcus aur eus (MRSA) screening culture - 10/03/18 07:20 Methicillin resistant Staphylococcus aureus (MRSA) scr eening culture NEG NRG Methicillin resistant Staphylococcus aur eus (MRSA) screening culture - 11/21/18 06:14 Methicillin resistant Staphylococcus aureus (MRSA) scr eening culture NEG NRG Complete urinalysis with reflex to cultu re - 06/08/19 17:27 Urine color determination YELLOW NRG Urine clarity determination CLEAR NR G Urine pH measurement by test strip 6.0 5-9 Specific gravity of urine by test strip <= 1.016-1.022 Urine protein assay by test strip, semi-quantitative NEGATIVE NEGATIVE Urine glucose detection by automated test strip NE GATIVE NEGATIVE Erythrocytes detection in urine sediment by light micr oscopy 3+ NEGATIVE Urine ketones detection by automated test strip NE GATIVE NEGATIVE Urine nitrite detection by test strip NEGATIVE NEGATIVE Urine total bilirubin detection by test strip NEGA TIVE NEGATIVE Urine urobilinogen measurement by automated test strip (mass/volume) 0.2 mg/dL < = 1.0 Urine leukocyte esterase detection by dipstick NEG ATIVE NEGATIVE Automated urine sediment erythrocyte cou nt by microscopy (number/high power field) [HPF] NRG Automated urine sediment leukocyte count by microscopy (number/high power field) [HPF] NRG Bacteria detection in urine sediment by light microsco py NEGATIVE NRG Squamous epithelial cells detection in u rine sediment by light microscopy 2-5 NRG Crystals detection in urine sediment by light microsco py NONE NRG Casts detection in urine sediment by light microscopy NONE NRG Mucus detection in urine sediment by light microscopy NEGATIVE NRG Complete urinalysis with reflex to culture NO NRG Complete blood count (CBC) with automate d white blood cell (WBC) differential - 06/08/19 17:50 Blood leukocytes automated count (number/volume) 11.4 10*3/uL 4.3-11.0 Blood erythrocytes automated count (number/volume) 4.80 10*6/uL 4.35-5.85 Venous blood hemoglobin measurement (mass/volume) 13.3 g/dL 11.5-16.0 Blood hematocrit (volume fraction) 40 % 35-52 Automated erythrocyte mean corpuscular volume 83 [ foz_us] 80-99 Automated erythrocyte mean corpuscular h emoglobin (mass per erythrocyte) 28 pg 25-34 Automated erythrocyte mean corpuscular h emoglobin concentration measurement (mass/volume) 33 g/dL 32-36 Automated erythrocyte distribution width ratio 14. 5 % 10.0- 14.5 Automated blood platelet count (count/volume) 372 10*3/uL 130-400 Automated blood platelet mean volume measurement 9.0 [foz_us] 7.4-10.4 Automated blood neutrophils/100 leukocytes 59 % 42-75 Automated blood lymphocytes/100 leukocytes 28 % 12-44 Blood monocytes/100 leukocytes 10 % 0-12 Automated blood eosinophils/100 leukocytes 3 % 0-10 Automated blood basophils/100 leukocytes 1 % 0-10 Blood neutrophils automated count (number/volume) 6.7 10*3 1.8-7.8 Blood lymphocytes automated count (number/volume) 3.2 10*3 1.0-4.0 Blood monocytes automated count (number/volume) 1. 1 10*3 0.0-1.0 Automated eosinophil count 0.3 10*3/uL 0 .0-0.3 Automated blood basophil count (count/volume) 0.1 10*3/uL 0.0-0.1 Serum or plasma choriogonadotropin (preg evens test) detection - 06/08/19 17:50 Serum or plasma choriogonadotropin ( test) de tection NEGATIVE NEGATIVE Comprehensive metabolic panel - 06/08/19 17:50 Serum or plasma sodium measurement (moles/volume) 136 mmol/L 135-145 Serum or plasma potassium measurement (moles/volume) 4.2 mmol/L 3.6-5.0 Serum or plasma chloride measurement (moles/volume) 99 mmol/L 98-107 Carbon dioxide 25 mmol/L 21-32 Serum or plasma anion gap determination (moles/volume) 12 mmol/L 5-14 Serum or plasma urea nitrogen measurement (mass/volume ) 11 mg/dL 7-18 Serum or plasma creatinine measurement (mass/volume) 1.08 mg/dL 0.60-1.30 Serum or plasma urea nitrogen/creatinine mass ratio 10 NRG Serum or plasma creatinine measurement w ith calculation of estimated glomerular filtration rate 58 NRG Serum or plasma glucose measurement (mass/volume) 87 mg/dL 70-105 Serum or plasma calcium measurement (mass/volume) 9.8 mg/dL 8.5-10.1 Serum or plasma total bilirubin measurement (mass/volu me) 0.2 mg/dL 0.1-1.0 Serum or plasma alkaline phosphatase hoa surement (enzymatic activity/volume) 79 U/L 40-136 Serum or plasma aspartate aminotransfera se measurement (enzymatic activity/volume) 20 U/L 5-34 Serum or plasma alanine aminotransferase measurement (enzymatic activity/volume) 33 U/L 0-55 Serum or plasma protein measurement (mass/volume) 7.3 g/dL 6.4-8.2 Serum or plasma albumin measurement (mass/volume) 4.6 g/dL 3.2-4.5 Lipase - 06/08/19 17:50 Lipase 289 U/L 8-78 Encounters ACCT No. Visit Date/Time Discharge Status Pt. Type Provider Facility Loc./Unit Complaint [id number] 06/13/2019 13:36:00 23:59:59 CLS Preadmit ELOY SMITH DO [facility] SLEEP SLEEP RELATED HYPOVENTI LATION [id number] 06/08/2019 16:32:00 19:14:00 DIS Emergency ROSAMARIA POSEY, ALFREDA Sadler [facility] ER ABD PAIN [id number] 11/21/2018 06:01:00 10:05:00 DIS Outpatient CHAPIS SEVILLA MD [facility] MIXED INCONTINENCE [id number] 11/20/2018 05:37:00 23:59:59 CLS Outpatient CHAPIS SEVILLA MD [facility] PREOP MIXED INCONTINENCE [id number] 10/03/2018 07:08:00 11:40:00 DIS Outpatient CHAPIS SEVILLA MD [facility] MIXED INCONTINENCE [id number] 09/28/2018 05:31:00 14:26:00 DIS Outpatient CHAPIS SEVILLA MD [facility] PREOP MIXED INCONTINENCE
== END 2019-06-08 19:14 | disposition home or self-care (01) ==
LOC: EDUNIT# 16:31 → ER 16:32
DX: K85.90 Acute pancreatitis without necrosis or infection, unspecified (principal); I10 Essential (primary) hypertension; E78.00 Pure hypercholesterolemia, unspecified; G62.9 Polyneuropathy, unspecified; K21.9 Gastro-esophageal reflux disease without esophagitis; K58.9 Irritable bowel syndrome, unspecified; M79.7 Fibromyalgia; M06.9 Rheumatoid arthritis, unspecified; E05.00 Thyrotoxicosis with diffuse goiter without thyrotoxic crisis or storm; F41.9 Anxiety disorder, unspecified; F31.9 Bipolar disorder, unspecified; Z90.49 Acquired absence of other specified parts of digestive tract; Z86.711 Personal history of pulmonary embolism; Z88.8 Allergy status to other drugs, medicaments and biological substances; Z88.2 Allergy status to sulfonamides; Z88.5 Allergy status to narcotic agent; Z88.1 Allergy status to other antibiotic agents; Z79.84 Long term (current) use of oral hypoglycemic drugs; Z77.22 Contact with and (suspected) exposure to environmental tobacco smoke (acute) (chronic)
CPT/HCPCS: 36415; 74177; 80053; 81000; 83690; 84703; 85025

== ENCOUNTER → 2023-04-12 | Outpatient (CLI) | payer BC ==
[~2023-04-12] MED LIST changes: +CATHETER FLUSH 10 ML SYR IV PRN; +DICY-11 PO; -DICY10CA12 PO; +HOLD METFORMIN - RECEIVED CONTRAST 20 ML VIAL IV SCH; +HYDR-3455 PO; +IOHEXOL 350 MG/ML 100 ML (OMNIPAQUE 350) VIAL IV ONE; +LEVO50TA6 PO; -LISI10TA2 PO; +LISI10TA25 PO; +LURA40TA2 PO; -LURA40TA3 PO; -MELA1TAB20 PO; +MELA1TAB72 PO; -METH5TAB5 PO; +METH5TAB95 PO; +NS 100 ML (IVPB) BAG IV ONE; +ONDA4TAB11 PO; -OXYB10TA2 PO; +OXYB10TA29 PO; +SELE200T11 PO
--- NOTE | 2023-04-12 15:53 | Diagnostic Imaging Report ---
PROCEDURE: CT pelvis with contrast. TECHNIQUE: Oral and intravenous contrast were administered with pelvic CT performed. Auto Exposure Controls were utilized during the CT exam to meet ALARA standards for radiation dose reduction. INDICATION: Vaginal bleeding. COMPARISON: Pelvic ultrasound 03/29/2023, CT of the abdomen and pelvis on 06/08/2019. FINDINGS: Pelvic mass measuring 3.4 x 3.3 cm likely originating from the cervix and protruding into the region of the bladder. The difficult to exclude a bladder cancer as well. The bowel is nondilated. The ovaries have a normal appearance. The uterus is normal. No pelvic lymphadenopathy. The osseous structures demonstrate no lytic or sclerotic bone lesion. IMPRESSION: Pelvic mass likely originating from the cervix concerning for neoplasm. Bladder cancer cannot be definitively excluded as the mass appears to protrude along the inferior margin of the urinary bladder. We could potentially differentiate the bladder wall from the mass on pelvic MRI if clinically warranted. Dictated by: Dictated on workstation # [id number]
== END ==
LOC: RAD 12:12
PROVIDERS: ATTEND Obstetrics & Gynecology
DX: N93.9 Abnormal uterine and vaginal bleeding, unspecified (principal)
CPT/HCPCS: 72193

== ENCOUNTER → 2023-05-23 | Outpatient (CLI) | payer BC ==
[~2023-05-23] VITALS: Ht 157.5 cm; Wt 111.7 kg
[~2023-05-23] MED LIST changes: +BUPR100T15 PO; -CATHETER FLUSH 10 ML SYR IV PRN; +CETI10TA24 PO; +CITA20TA9 PO; +FLUT9.9S NS; -HOLD METFORMIN - RECEIVED CONTRAST 20 ML VIAL IV SCH; +IBUP-1780 PO; -IOHEXOL 350 MG/ML 100 ML (OMNIPAQUE 350) VIAL IV ONE; +LURA60TA4 PO; +MEDR5TAB PO; +MILK175C5 PO; +MTP25TSR PO; -NS 100 ML (IVPB) BAG IV ONE; +OMEG-154 PO; +TUME1CAP PO
== END | disposition home or self-care (01) ==
LOC: PREOP 05:25
PROVIDERS: ATTEND Obstetrics & Gynecology
DX: Z01.818 Encounter for other preprocedural examination (principal)

== ENCOUNTER 2023-05-30 07:39 | Day surgery (SDC) | payer BC ==
[~2023-05-30] VITALS: Ht 157.5 cm; Wt 111.7 kg
[2023-05-30] VITALS (11 sets, daily range): BP systolic 95–128; BP diastolic 52–92
[2023-05-30] MEDS ORDERED: ceFAZolin INJECTION 2,000 MG in NS (IVPB) 50 ML 50 ML IV ONE (08:00)
[2023-05-30] MEDS: LACTATED RINGERS 1,000 ML 1,000 ML IV PRN ×2 (08:34→11:00)
[2023-05-30 08:41] LABS: BASOPHILS # (AUTO) 0.1 10^3/uL (0.0-0.1); BASOPHILS % (AUTO) 1 % (0-10); EOSINOPHILS # (AUTO) 0.3 10^3/uL (0.0-0.3); EOSINOPHILS % (AUTO) 2 % (0-10); HEMATOCRIT 44 % (35-52); HEMOGLOBIN 14.3 g/dL (11.5-16.0); LYMPHOCYTES # (AUTO) 3.6 10^3/uL (1.0-4.0); LYMPHOCYTES % (AUTO) 27 % (12-44); MEAN CORPUSCULAR HEMOGLOBIN 28 pg (25-34); MEAN CORPUSCULAR HGB CONC 33 g/dL (32-36); MEAN CORPUSCULAR VOLUME 87 fL (80-99); MEAN PLATELET VOLUME 8.8 fL (9.0-12.2); MONOCYTES % (AUTO) 7 % (0-12); NEUTROPHILS # (AUTO) 8.5 10^3/uL (1.8-7.8); NEUTROPHILS % (AUTO) 63 % (42-75); PLATELET COUNT 369 10^3/uL (130-400); WHITE BLOOD COUNT 13.5 10^3/uL (4.3-11.0)
--- NOTE | 2023-05-30 09:55 | History & Physical-OB/GYN ---
History of Present Illness History of Present Illness Reason for visit/HPI This 38-year-old is here today because she has had some abnormal uterine bleeding and it was noted on ultrasound that she had a mass between her uterus and her bladder. Patient had a history of Macroplastique being inserted however on CT scan this did not look like Macroplastique per the radiologist. It was decided that since she has this mass that we need to make sure that it is not a tumor. CA125 was within normal limits.The uterus measured 6.5 x 5 x 5.2 cm and the endometrium was 3 mm. There was an irregular lobulated solid contour along the inferior bladder wall approximately 3.2 x [address] scan it looks like it was possibly originating from the cervix and protruding into the region of the bladder although it was difficult to determine for sure. We discussed different options and at this time we will plan for D&C hysteroscopy, cystoscopy and diagnostic laparoscopy. We discussed risk benefits and alternatives including the risks of infection bleeding injury to bowel bladder ureters nerves and limb damage anesthesia risks and VTE and the possibility of . We also discussed the benefits of trying to determine what is going on and what this mass is. Patient verbalized understanding of the risk benefits and alternatives signed consents and is ready to proceed Date of Admission 05/30/2023 Time Seen by a Provider: 09:45 I consulted on this patient on 05/30/23 09:50 Attending Physician Evan Moreira DO Admitting Physician Admitting Physician: Attending Physician: Liz Houser DO Consult Allergies and Home Medications Allergies Coded Allergies: lamotrigine (Verified Allergy, Mild, RASH, 11/20/18) niacin (Verified Allergy, Mild, RASH, 11/20/18) sulfamethoxazole (Verified Allergy, Mild, HIVES, 11/20/18) trimethoprim (Verified Allergy, Mild, HIVES, 11/20/18) morphine (Verified Adverse Reaction, Unknown, DOESNT' WORK FOR PAIN CONTROL, 09/28/18) Patient Home Medication List Home Medication List Reviewed: Yes Atorvastatin Calcium (Atorvastatin Calcium) 20 Mg Tablet, 20 MG PO HS, (Reported ) Entered as Reported by: LATHA GOODWIN on 09/28/18 6425 Last Action: Reviewed Bupropion HCl (Bupropion HCl) 100 Mg Tablet, 100 MG PO, (Reported) Entered as Reported by: Dionne Bishop on 05/23/231513 Last Action: Reviewed Cetirizine HCl (Cetirizine HCl) 10 Mg Tab.chew, 10 MG PO, (Reported) Entered as Reported by: Dionne Bishop on 05/23/231513 Last Action: Reviewed Cholecalciferol (Vitamin D3) (Vitamin D3) 2,000 Unit Tablet, 2,000 UNIT PO DAILY, (Reported) Entered as Reported by: LATHA GOODWIN on 09/28/181424 Last Action: Reviewed Citalopram Hydrobromide (Citalopram HBr) 20 Mg Tablet, 20 MG PO, (Reported) Entered as Reported by: Dionne Bishop on 05/23/231513 Last Action: Reviewed Dicyclomine HCl (Dicyclomine HCl) 10 Mg Capsule, 10 MG PO TID, (Reported) Entered as Reported by: LATHA GOODWIN on 09/28/181424 Last Action: Reviewed Ferrous Sulfate (Iron) 325 Mg Tablet, 325 MG PO DAILY, (Reported) Entered as Reported by: LATHA GOODWIN on 09/28/181424 Last Action: Reviewed Fluticasone Propionate (Flonase Allergy Relief) 50 Mcg/Actuation [place].susp, 2 SPRAY NS DAILY, (Reported) Entered as Reported by: Dionne Bishop on 05/23/231514 Last Action: Reviewed Ibuprofen (Ibuprofen) 800 Mg Tablet, 800 MG PO Q8H PRN for PAIN-MILD, (Reported) Entered as Reported by: Dionne Bishop on 05/23/231514 Last Action: Reviewed Levothyroxine Sodium (Levothyroxine Sodium) 50 Mcg Tablet, 50 MCG PO, (Reported) Entered as Reported by: JAY VU on 06/08/191654 Last Action: Reviewed Lurasidone HCl (Lurasidone HCl) 60 Mg Tablet, 60 MG PO, (Reported) Entered as Reported by: Dionne Bishop on 05/23/231514 Last Action: Reviewed Magnesium Oxide (Magnesium) 500 Mg Capsule, 500 MG PO DAILY, (Reported) Entered as Reported by: LATHA GOODWIN on 09/28/181424 Last Action: Reviewed Medroxyprogesterone Acetate (Provera) 5 Mg Tablet, 5 MG PO, (Reported) Entered as Reported by: Dionne Bishop on 05/23/231514 Last Action: Reviewed Melatonin/Pyridoxine HCl (B6) (Melatonin 10 mg Tablet) 1 Each Tab.mphase, 10 MG PO HS, (Reported) Entered as Reported by: LATHA GOODWIN on 09/28/181424 Last Action: Reviewed Metformin HCl (Metformin HCl) 500 Mg Tablet, 500 MG PO TID, (Reported) Entered as Reported by: LATHA GOODWIN on 09/28/181424 Last Action: Reviewed Metoprolol Succinate (Metoprolol Succinate) 25 Mg Tab.er.24h, 25 MG PO DAILY, (Reported) Entered as Reported by: Dionne Bishop on 05/23/231514 Last Action: Reviewed Milk Thistle Seed Extract (Milk Thistle) 175 Mg Capsule, 175 MG PO, (Reported) Entered as Reported by: Dionne Bishop on 05/23/231514 Last Action: Reviewed Multivit with Calcium,Iron,Min (Women's Daily Formula) 1 Each Tablet, 1 EACH PO DAILY, (Reported) Entered as Reported by: LATHA GOODWIN on 09/28/181424 Last Action: Reviewed [place]-3S/Dha/Epa/Fish Oil (Fish Oil [place]-3 Softgel) 980 Mg-253 Mg-647 Mg-1,400 Mg Capsule.dr, 1 EACH PO, (Reported) Entered as Reported by: Dionne Bishop on 05/23/231513 Last Action: Reviewed Oxybutynin Chloride (Oxybutynin Chloride ER) 10 Mg Tab.er.24, 10 MG PO DAILY, (Reported) Entered as Reported by: LATHA GOODWIN on 09/28/181424 Last Action: Reviewed Pregabalin (Lyrica) 75 Mg Capsule, 75 MG PO BID, (Reported) Entered as Reported by: LATHA GOODWIN on 09/28/18 1353 Last Action: Reviewed Selenomethionine (Selenium) 200 Mcg Tablet, 200 MCG PO, (Reported) Entered as Reported by: JAY VU on 06/08/19 376 Last Action: Reviewed Tumeric/Ging/[place]/Oreg/Capryl (Candicidal Capsule) 100-150 Mg Capsule, 1 EACH PO, (Reported) Entered as Reported by: Dionne Bishop on 11/20/23 1515 Last Action: Reviewed Discontinued Medications Apixaban (Eliquis) 5 Mg Tablet, 5 MG PO BID, (Reported) Discontinued Reason: No Longer Taking Entered as Reported by: JAY VU on 06/08/19 1655 Baclofen (Baclofen) 10 Mg Tablet, 10 MG PO QID PRN for MUSCLE SPASMS, (Reported) Discontinued Reason: No Longer Taking Entered as Reported by: LATAH GOODWIN on 09/28/18 1353 Duloxetine HCl (Duloxetine HCl) 60 Mg Capsule.dr, 60 MG PO DAILY, (Reported) Discontinued Reason: No Longer Taking Entered as Reported by: LATHA GOODWIN on 09/28/18 1353 Ginkgo Biloba (Ginkgo Biloba) 60 Mg Tablet, 60 MG PO DAILY, (Reported) Discontinued Reason: No Longer Taking Entered as Reported by: LATHA GOODWIN on 09/28/18 1425 Hydrocodone/Acetaminophen (Vicodin 5-300 mg Tablet) 1 Each Tablet, 1-2 EACH PO Q6H PRN for PAIN-MODERATE Discontinued Reason: No Longer Taking Prescribed by: ALFREDA BLANK MD on 06/08/19 1855 Lisinopril (Lisinopril) 10 Mg Tablet, 10 MG PO DAILY, (Reported) Discontinued Reason: No Longer Taking Entered as Reported by: LATHA GOODWIN on 09/28/18 1425 Lurasidone HCl (Latuda) 40 Mg Tablet, 40 MG PO DAILY, (Reported) Discontinued Reason: No Longer Taking Entered as Reported by: LATHA GOODWIN on 09/28/18 1425 Mirabegron (Myrbetriq) 50 Mg Tab.er.24h, 50 MG PO DAILY, (Reported) Discontinued Reason: No Longer Taking Entered as Reported by: LATHA GOODWIN on 09/28/18 1425 [place] 3 Polyunsat Fatty Acids (Fish Oil 1,000 mg Capsule) 1,000 Mg Cap, 1,000 MG PO DAILY, (Reported) Discontinued Reason: No Longer Taking Entered as Reported by: LATHA GOODWIN on 09/28/18 1425 Ondansetron (Ondansetron Odt) 4 Mg Tab.rapdis, 4 MG PO Q4H PRN for NAUSEA/VOMITING Discontinued Reason: No Longer Taking Prescribed by: ALFREDA BLANK MD on 06/08/19 9782 Propranolol HCl (Propranolol HCl) 20 Mg Tablet, 20 MG PO BID, (Reported) Discontinued Reason: No Longer Taking Entered as Reported by: LATHA GOODWIN on 09/28/18 1425 Past Uxwtzfk-Wskycc-Njshgu Hx Patient Social History Number of Children: 0 Employed/Student: employed Smoking Status: Never a Smoker 2nd Hand Smoke Exposure: Yes Recent Hopitalizations: No Alcohol Use?: No Substance type: Caffeine, Marijuana, Other Pt feels they are or have been: No Immunizations Up To Date Date of Influenza Vaccine: Apr 03, 2018 Seasonal Allergies Seasonal Allergies: Yes (COUGHING WITH ALLERGIES) Surgeries Yes (WISDOM TEETH, UROLOGY PROCEDURE) Adenoidectomy, Appendectomy, Gallbladder, Tonsillectomy Respiratory Yes (2017-PE RIGHT LUNG) Currently Using CPAP: No Cardiovascular Yes High Cholesterol, Hypertension Neurological Yes Neuropathy Reproductive System Hx : 0 Sexually Transmitted Disease: No HIV/AIDS: No Female Reproductive Disorders: Menstrual Problems, Polycystic Ovarian Dis Genitourinary No (OAB, ISD) Gastrointestinal Yes (ANTACID PRN) Gastroesophageal Reflux, Irritable Bowel Musculoskeletal Yes Arthritis, Fibromyalgia, Rheumatoid Arthritis Endocrine History of Endocrine Disorders: Yes (graves disease-had radiation ) Endocrine Disorders: Hypothyroidsim HEENT History of HEENT Disorders: Yes (GRAVES EYE DISEASE) Loss of Vision: Denies Hearing Impairment: Denies Cancer No Psychosocial History of Psychiatric Problem: Yes Behavioral Health Disorders: ADD/ADHD, Anxiety, ODD, PTSD, Bipolar Integumentary History of Skin or Integumenta: No Blood Transfusions History of Blood Disorders: Yes (HISTORY OF PULMONARY EMBOLUS) Adverse Reaction to a Blood Tr: No (N/A) Review of Systems Constitutional: see HPI EENTM: see HPI Respiratory: see HPI Cardiovascular: see HPI Gastrointestinal: see HPI Genitourinary: see HPI Musculoskeletal: see HPI Skin: see HPI Psychiatric/Neurological: No Symptoms Reported, See HPI Physical Exam Physical Exam Vital Signs Vital Signs Date Time Temp Pulse Resp B/P (MAP) Pulse Ox O2 Delivery O2 Flow Rate FiO2 05/30/23 07:44 35.5 89 20 110/83 (92) 93 Room Air Capillary Refill : Labs Laboratory Tests 05/30/23 08:25: White Blood Count 13.5H, Red Blood Count 5.05, Hemoglobin 14.3, Hematocrit 44, Mean Corpuscular Volume 87, Mean Corpuscular Hemoglobin 28, Mean Corpuscular Hemoglobin Concent 33, Red Cell Distribution Width 13.8, Platelet Count 369, Mean Platelet Volume 8.8L, Immature Granulocyte % (Auto) 1, Neutrophils (%) (Auto) 63, Lymphocytes (%) (Auto) 27, Monocytes (%) (Auto) 7, Eosinophils (%) (Auto) 2, Basophils (%) (Auto) 1, Neutrophils # (Auto) 8.5H, Lymphocytes # (Auto) 3.6, Monocytes # (Auto) 1.0, Eosinophils # (Auto) 0.3, Basophils # (Auto) 0.1, Immature Granulocyte # (Auto) 0.1 General Appearance: No Apparent Distress, Obese Respiratory: Lungs Clear Cardiovascular: Regular Rate, Rhythm, No Edema Abdominal: normal bowel sounds, non tender, soft, no organomegaly, no pulsatile mass Gynecology/General: No urethral discharge Labia: Bilateral, WNL Vagina: WNL Cervix: WNL Cervix OS: closed Uterus: WNL Ovaries: Bilateral, WNL Pelvic Exam: normal external exam, normal adnexa, no cerv. motion tender, no m asses Extremity: Normal Inspection, Normal Range of Motion, Non Tender, No Calf Tenderness, No Pedal Edema Assessment/Plan Admission Diagnosis Pelvic mass Plan is to do a D&C hysteroscopy, cystoscopy, diagnostic laparoscopy Admission Status: Other (Clinic) LIZ HOUESR DO May 30, 2023 09:55
--- NOTE | 2023-05-30 09:58 | OB/GYN Operative Report ---
Operative Report Date of Procedure:May 30, 2023 Preoperative Diagnosis: Pelvic mass History of Macroplastique Postoperative Diagnosis: No pelvic mass visualized cystitis history of Macroplastique Name of the Procedure: Cystoscopy, hysteroscopy, diagnostic laparoscopy Surgeon: Michele Cruz Sheriff'S Officer(s): [none] Anesthesia: General ETA Indications for Procedure: This 38-year-old G0 who presented with a history of bleeding and some hematuria it was noted that she had a pelvic mass near her bladder that was possibly coming off of her uterus that was seen on ultrasound. She had a follow-up CT which showed a lobulated pelvic mass between her bladder and her uterus not sure if it was a bladder tumor or not. Patient states that she had a history of Macroplastique we reviewed with the radiologist at that time if this could be bronchoplasty again he stated that he did not believe that it was so. It was decided that we should take her to a cystoscopy hysteroscopy to determine if we can find an mass and if we could not then do a laparoscopy to see if there was a mass. We discussed the risk benefits and alternatives in great detail including the risks of infection bleeding injury to uterus, bladder, bowel, pelvic and abdominal organs, VTE, nerve and limb damage and anesthesia risks. The benefit of being able to make a diagnosis. The patient verbalized understanding signed consents and was ready to proceed Findings of the Procedure: No pelvic mass, cystitis which urine culture and cytology from the bladder we are sent to pathology for further analysis Complications: None Disposition: Counts correct x 2. Patient taken to recovery room in stable condition Description of the Procedure: Informed consent was obtained and signed patient was taken to the OR Kvng. 1 placed under general endotracheal anesthesia placed in the dorsolithotomy position prepped and draped usual sterile fashion. A timeout was performed. A pelvic exam under anesthesia revealed a normal-sized uterus no adnexal masses and weighted speculum was placed into the posterior vaginal vault and a single- tooth tenaculum was used to grasp the antilipid the cervix. The bladder was drained for 250 cc. The cystoscopy was then performed and there was noted to be kind of the spotty appearance to the bladder and the urologist was called in to take a look. Urologist thought that this appeared to be like cystitis so a urine culture was sent as well as cytology. He did not see any tumors and nor did. The urologist reviewed the CT scan and also did not think that it looked like Macroplastique. We then proceeded to hysteroscopy the hysteroscopy was done there was no tumors inside the uterus the fundus was intact and both ostia were visualized there is no polyps or anything abnormalities. A ZUMI manipulator was inserted into the uterine cavity We then proceeded to laparoscopy where the abdomen was insufflated using carbon oxide gas and the patient was placed in Trendelenburg position. The supraumbilical area was injected with quarter percent plain Marcaine a small incision was made. The abdomen was insufflated using a Veress needle. Then a 5 mm trocar inserted into the abdominal cavity without any difficulty. The pelvic contents were identified. The uterus tubes and ovaries were noted to be normal the bladder was also noted to be normal the posterior cul-de-sac was also noted to be normal there was noted to be no lesions or masses. So based on this information we have ruled out any masses in any of these areas and so most likely this is from Macroplastique. Pictures were obtained. The trocars were removed and as much of the carbon oxide gas was allowed to escape as possible. The incision sites were reapproximated using Dermabond. The patient was taken to recovery room in stable condition all my counts were correct x 2 the estimated blood loss was less than 25 cc fluids were 1700 cc urine output was 250 cc in total irrigation was 1000 cc. MICHELE CRUZ DO May 30, 2023 09:58
[2023-05-30] MEDS ORDERED: BUPIVACAINE 0.25% 30 ML VIAL ONE (10:04)
[2023-05-30] MEDS ORDERED: fentaNYL INJECTION 100 MCG/2 ML VIAL ONE ×2 (10:31→12:22)
[2023-05-30] MEDS ORDERED: MIDAZOLAM INJ 2 MG/2 ML VIAL ONE (10:32)
[2023-05-30] MEDS ORDERED: ROCURONIUM 50 MG/5 ML VIAL IV ONE (11:35)
[2023-05-30] MEDS ORDERED: LIDOCAINE PF 2% 5 ML VIAL ONE (11:35)
[2023-05-30] MEDS ORDERED: proPOfol INJECTION 200 MG/20 ML VIAL IV ONE (11:35)
[2023-05-30] MEDS ORDERED: SUGAMMADEX INJ 100 MG/ML 5 ML VIAL IV ONE (11:36)
[2023-05-30] MEDS ORDERED: SEVOFLURANE (ULTANE) 15 ML INHAL SOLN ONE (11:49)
--- NOTE | 2023-05-30 12:02 | Anesthesia-General Post-Op ---
General Patient Condition Mental Status/LOC: Same as Preop Cardiovascular: Satisfactory Nausea/Vomiting: Absent Respiratory: Satisfactory Pain: Controlled Complications: Absent Post Op Complications Complications None Follow Up Care/Instructions Patient Instructions None needed. Anesthesia/Patient Condition Patient Condition Patient is doing well, no complaints, stable vital signs, no apparent adverse anesthesia problems. No complications reported per nursing. DAVID ROMERO CRNA May 30, 2023 12:02
[2023-05-30] MEDS ORDERED: IBUP-1773 PO (12:03)
[2023-05-30] MEDS ORDERED: ACHD5005 PO (12:03)
[2023-05-30] MEDS ORDERED: NITR100C PO (12:05)
[2023-05-30] MEDS ORDERED: fentaNYL INJECTION 100 MCG/2 ML VIAL IVP ONE (12:15)
[2023-05-30] MEDS ORDERED: ONDANSETRON INJECTION 4 MG/2 ML (SDV) IVP PRN (12:15)
--- NOTE | 2023-05-30 12:46 | OPERATIVE REPORT ---
DATE OF SERVICE: 05/30/2023 PREOPERATIVE DIAGNOSIS: Questionable bladder mass. PROCEDURE: Cystoscopy. INDICATIONS: A 38-year-old female who was undergoing surgery by Dr. Houser for questionable lobulated mass between the bladder and uterus. Dr. Houser has asked me to perform a cystoscopy to ensure there are no abnormalities in the bladder. DESCRIPTION OF PROCEDURE: The patient was already prepped and draped. I performed cystoscopy with 22-[place] cystoscope sheath and 30 and 70 degree lens. Ureteral orifices were in normal orthotopic position. Urethra appeared normal. Panendoscopy of bladder with 30 and 70 degree lens revealed petechiae consistent with acute cystitis, but no tumors or stones. There was no extravesical compression of the bladder. The bladder was then drained. Dr. Houser then proceeded with laparoscopy. Job ID: [id number] DocumentID: [id number] Dictated Date: 05/30/2023 12:08:54 Expedition Supervisor Date: 05/30/2023 12:45:00 Dictated By: Julienne PRICE MD
[2023-05-30] MEDS ORDERED: HYDROcodone/ACETAMINOPHEN 5 MG/325 MG TABLET PO ONE (13:30)
== END 2023-05-30 13:55 | disposition home or self-care (01) ==
LOC: SDC 07:39
PROVIDERS: ATTEND Obstetrics & Gynecology
DX: N30.90 Cystitis, unspecified without hematuria (principal); E66.9 Obesity, unspecified; Z68.42 Body mass index [BMI] 45.0-49.9, adult
CPT/HCPCS: 36415; 84703; 85025; 87077; 87081; 87088; 87186; 88112